=== PATIENT | male | born 1960 | race Caucasian/White ===

== ENCOUNTER → 2016-07-03 | Outpatient (CLI) | payer BC ==
[~2016-07-03] VITALS: Ht 172.7 cm; Wt 97.7 kg
[~2016-07-03] MED LIST: MULTI VITAMINS1 TAB PO; NORCO 325 MG-51 TAB; PRILOSEC 20MG20 MG PO; XANAX 1MG1 MG PO
[2016-07-03 10:04] VITALS: BP 146/90; PULSE 65
[2016-07-03 11:24] VITALS: BP 150/88; PULSE 65
== END ==
LOC: COL.RAD 09:30
DX: M48.06 Spinal stenosis, lumbar region (principal)
CPT/HCPCS: J3301

== ENCOUNTER → 2016-11-21 | Outpatient (CLI) | payer BC ==
[~2016-11-21] VITALS: Ht 172.7 cm; Wt 96.4 kg
[2016-11-21 06:56] VITALS: BP 160/98; PULSE 73
[2016-11-21 08:37] VITALS: BP 148/95; PULSE 69
== END ==
LOC: COL.RAD 06:30
DX: M48.02 Spinal stenosis, cervical region (principal)
CPT/HCPCS: J1100

== ENCOUNTER → 2017-02-07 | Outpatient (CLI) | payer BC | LOC: MHCPAIN 11:46 | DX: G89.29 Other chronic pain (principal); M47.812 Spondylosis without myelopathy or radiculopathy, cervical region; R51 Headache | CPT/HCPCS: G0463 ==

== ENCOUNTER → 2017-03-29 | Outpatient (CLI) | payer BC | LOC: MHCPAIN 13:24 | DX: M50.321 Other cervical disc degeneration at C4-C5 level (principal) ==

== ENCOUNTER → 2017-04-10 | Outpatient (CLI) | payer BC | LOC: MHCPAIN 08:15 | DX: G89.29 Other chronic pain (principal); M50.90 Cervical disc disorder, unspecified, unspecified cervical region; R51 Headache | CPT/HCPCS: G0463 ==

== ENCOUNTER → 2017-05-03 | Outpatient (CLI) | payer BC | LOC: MHCPAIN 11:51 | DX: M50.321 Other cervical disc degeneration at C4-C5 level (principal) | CPT/HCPCS: J1100; J2250; J3010 ==

== ENCOUNTER → 2017-05-23 | Outpatient (CLI) | payer BC | LOC: MHCPAIN 14:14 | DX: G89.29 Other chronic pain (principal); M50.121 Cervical disc disorder at C4-C5 level with radiculopathy; R51 Headache | CPT/HCPCS: G0463 ==

== ENCOUNTER → 2017-08-31 | Outpatient (CLI) | payer OTHER | LOC: COL.RAD 09:00 | DX: M51.16 Intervertebral disc disorders with radiculopathy, lumbar region (principal); Z98.1 Arthrodesis status | CPT/HCPCS: A9585 ==

== ENCOUNTER → 2017-10-04 | Outpatient (CLI) | payer BC ==
[~2017-10-04] VITALS: Ht 172.7 cm; Wt 102.7 kg
[~2017-10-04] MED LIST changes: +MOBIC15 MG PO; +PERCOCET 325 MG1 TA2 PO; +ZANAFLEX CAPSULE4 MG PO
[2017-10-04 12:12] VITALS: BP 164/99; PULSE 79
[2017-10-04 13:19] VITALS: BP 168/97; PULSE 62
== END ==
LOC: COL.RAD 11:57
DX: M54.16 Radiculopathy, lumbar region (principal)
CPT/HCPCS: J3301

== ENCOUNTER → 2017-10-26 | Outpatient (CLI) | payer BC ==
[~2017-10-26] VITALS: Ht 172.7 cm; Wt 101.9 kg
[2017-10-26 13:37] VITALS: BP 179/100; PULSE 80
[2017-10-26 15:00] VITALS: BP 136/86; PULSE 73
== END ==
LOC: COL.RAD 10-24 09:30
DX: M48.061 Spinal stenosis, lumbar region without neurogenic claudication (principal)
CPT/HCPCS: J3301

== ENCOUNTER → 2019-06-12 | Outpatient (CLI) | payer BC | LOC: COL.RAD 09:37 | DX: M54.9 Dorsalgia, unspecified (principal); N28.89 Other specified disorders of kidney and ureter | CPT/HCPCS: A9585 ==

== ENCOUNTER → 2019-06-17 | Outpatient (CLI) | payer BC | LOC: COL.RAD 07:05 | DX: N28.89 Other specified disorders of kidney and ureter (principal); K76.0 Fatty (change of) liver, not elsewhere classified; Z98.1 Arthrodesis status | CPT/HCPCS: Q9967 ==

== ENCOUNTER → 2019-06-24 | Outpatient (CLI) | payer BC ==
[~2019-06-24] VITALS: Ht 172.7 cm; Wt 103.4 kg
[~2019-06-24] MED LIST changes: +NATURAL IRON65 MG PO; +NEURONTIN300 MG/CAP PO; +PROTONIX 40MG T40 MG PO
[2019-06-24 06:52] VITALS: BP 153/89; PULSE 83
--- NOTE | 2019-06-24 07:50 | NUR ---
PROCEDURE CANCELLED BY DR HARVEY. PT IS TO SEE DR ALLISON.
== END ==
LOC: COL.RAD 06:26
DX: N28.89 Other specified disorders of kidney and ureter (principal)

== ENCOUNTER → 2020-01-06 | Outpatient (CLI) | payer BC | LOC: COL.RAD 09:51 | DX: C64.1 Malignant neoplasm of right kidney, except renal pelvis (principal); Z90.5 Acquired absence of kidney | CPT/HCPCS: Q9967 ==

== ENCOUNTER → 2020-06-30 | Outpatient (CLI) | payer OTHER | LOC: COL.RAD 07:06 | DX: C64.1 Malignant neoplasm of right kidney, except renal pelvis (principal); Z90.5 Acquired absence of kidney; Z98.1 Arthrodesis status | CPT/HCPCS: Q9967 ==

== ENCOUNTER → 2021-01-04 | Outpatient (CLI) | payer OTHER | LOC: COL.RAD 08:07 | DX: Z90.5 Acquired absence of kidney (principal); C64.1 Malignant neoplasm of right kidney, except renal pelvis | CPT/HCPCS: Q9967 ==

== ENCOUNTER → 2021-06-30 | Outpatient (CLI) | payer OTHER | LOC: COL.RAD 09:36 | DX: C64.1 Malignant neoplasm of right kidney, except renal pelvis (principal); R93.421 Abnormal radiologic findings on diagnostic imaging of right kidney; Z90.5 Acquired absence of kidney | CPT/HCPCS: Q9967 ==

== ENCOUNTER → 2021-07-07 | Outpatient (CLI) | payer OTHER | LOC: DIA.ED 08:06 | DX: E11.9 Type 2 diabetes mellitus without complications (principal); Z79.84 Long term (current) use of oral hypoglycemic drugs; I10 Essential (primary) hypertension | CPT/HCPCS: G0108 ==

== ENCOUNTER → 2022-07-18 | Outpatient (CLI) | payer BC | LOC: COL.RAD 09:16 | DX: C64.1 Malignant neoplasm of right kidney, except renal pelvis (principal); Z90.5 Acquired absence of kidney ==

== ENCOUNTER → 2023-11-23 | Day surgery (SDC) | payer BC ==
[~2023-11-23] VITALS: Ht 172.7 cm; Wt 95.8 kg
[~2023-11-23] MED LIST changes: +BUSPAR10 MG PO; +BYSTOLIC5 MG PO; +DIOVAN320 MG PO; +LR 1,000 ML IV SCH; +Lidocaine PF 2% (20 MG/ML) 5 ML VIAL ONE; +Ondansetron 4 MG/2 ML VIAL IV PRN
[2023-11-23 11:51] VITALS: BP 148/92; PULSE 57; TEMP 97
[2023-11-23 12:25] VITALS: BP 135/88; PULSE 63; TEMP 98.1
[2023-11-23 12:40] VITALS: BP 129/92; PULSE 52
[2023-11-23 12:46] VITALS: BP 126/90; PULSE 52
--- NOTE | 2023-11-23 12:47 | NUR ---
1225- Pt arrived to [place] [facility] - pt ambulated from cart to chair with standby assist 1230- pt tolerating po intake well 1240- MD Jayashree in room with pt 1245- pt verbalizes understanding discharge materials 1250- pt dressed self 1255- pt escorted out via wheelchair with to vehicle
== END ==
LOC: SDCO 09:45
DX: Z12.11 Encounter for screening for malignant neoplasm of colon (principal); Z85.528 Personal history of other malignant neoplasm of kidney
CPT/HCPCS: J2704; J7120